=== PATIENT | female | born 1935 | race Caucasian/White ===

== ENCOUNTER → 2018-01-12 | Outpatient (CLI) | payer MEDICARE, OTHER ==
--- NOTE | 2018-01-12 11:31 | PCVCIMAG ---
APPROVED REPORT Imaging Protocol: Rest Tc-99m/Stress Tc-99m 1 day Study performed: 01/12/2018 09:16:20 Indication: CM, Chest Pain, [place], Fatigue Patient Location: Out-Patient Stress Nurse: RUTH Sellers Tech:George BautistaTRAV Ht: 4 ft 10 in Wt: 97 lbs BSA: 1.34 m2 HR: 64 bpm BP: 160/74 mmHg BMI: 20.27 Rhythm: NSR Medical History Medical History: Age, Hyperlipidemia, HTN, Dm Medications: [place], ASA, Atorvastatin, Carvedilol, Nexium, Gemfibrozil, Metformin Allergies: No known drug allergies Exercise History: Physically active Meds Held (24 hrs): Carvedilol Resting Data Rest SPECT myocardial perfusion imaging was performed in supine position 45 minutes following the intravenous injection of 11..8 mCi of Tc-99m Sestamibi. Time of rest injection: 819 Date: 01/12/2018 Administration Route: IV Administration Site: Right AC Pharmacologic Stress Time of stress injection: Date: Exercise Stress At peak stress, the patient was injected intravenously with 34.6mCi of Tc-99m Sestamibi. Time of stress injection: 1000 Administration Route: IV Administration Site: Right AC Heart Rate at time of stress injection: 120 bpm. Patient continued to exercise for 6.5 minute(s). Gated Stress SPECT was performed 45 minutes after stress injection. The images were gated to evaluate regional wall motion and calculate left ventricular ejection fraction. Stress Test Details Stress Test: Exercise stress testing was performed using a [place] protocol. HRMax Heart Rate (APMHR): 138 bpm Resting HR: 64 bpmTarget HR (85% APMHR): 117 bpm Max HR Achieved: 120 bpm % of APMHR: 86 Recovery HR: 64 bpm BP Resting BP: 160/74 mmHg Recovery BP: 142/64 mmHg ECG Resting ECG: Sinus Rhythm Stress ECG: Sinus Tachycardia ST Change: None Maximum ST Deviation: 0 mm Arrhythmia: None Recovery ECG: Sinus Rhythm Recovery ST Change: None Recovery Arrhythmia: None Clinical Reason for Termination: Dyspnea, Fatigue Stress Symptoms: Dyspnea, Fatigue Exercise duration: 6 min 0 sec Exercise capacity: 7.0 METs Overall Exercise Capacity for Age: Good Scale: Active Angina Score: None Symptoms resolved during recovery. Stress ECG Conclusion Interiano Treadmill Score is 6.0 which is Low risk. Study Quality Study: Good Study Data Post stress, the left ventricular ejection was 89%.. SSS: 0 SRS: 0 SDS: 0 TID = 0.95. Perfusion Normal left ventricular perfusion. Normal perfusion on both the stress and rest images. Wall Motion Normal left ventricular wall motion. Nuclear Conclusion ECG Findings: negative for ischemia Clinical Findings: non-diagnostic Nuclear Findings: negative for ischemia Exercise Capacity: not assessed Left Ventricular Function: normal Risk Study: low This study is of low probability for inducible ischemia or prior infarct. Normal global and segmental LV systolic function.
== END | disposition home or self-care (01) ==
LOC: PCVCIMAG 08:44
PROVIDERS: ATTEND Internal Medicine Cardiovascular Disease
DX: I10 Essential (primary) hypertension (principal); I42.9 Cardiomyopathy, unspecified; E78.00 Pure hypercholesterolemia, unspecified; R06.09 Other forms of dyspnea; R53.83 Other fatigue; E78.5 Hyperlipidemia, unspecified; E11.9 Type 2 diabetes mellitus without complications; Z79.82 Long term (current) use of aspirin; Z79.84 Long term (current) use of oral hypoglycemic drugs
CPT/HCPCS: 78452; 93017; A9500; G0463

== ENCOUNTER → 2019-02-11 | Outpatient (CLI) | payer MEDICARE, OTHER | END | disposition home or self-care (01) | LOC: PCVCCLINIC 14:15 | PROVIDERS: ATTEND Internal Medicine Cardiovascular Disease | DX: I42.8 Other cardiomyopathies (principal); I10 Essential (primary) hypertension; E78.00 Pure hypercholesterolemia, unspecified; E03.9 Hypothyroidism, unspecified; E11.9 Type 2 diabetes mellitus without complications; Z79.82 Long term (current) use of aspirin | CPT/HCPCS: 93005; G0463 ==